=== PATIENT | male | born 1965 | race Caucasian/White ===

== ENCOUNTER 2020-08-28 12:52 | Emergency (ER) | payer OTHER ==
[~2020-08-28] VITALS: Ht 177.8 cm; Wt 77.1 kg
[2020-08-28] MEDS ORDERED: SODIUM CHLORIDE 0.9% 1,000 ML IV ONE ×2 (13:15)
[2020-08-28 13:40] LABS: Urine Bacteria NONE SEEN /hpf (None Seen); Urine Blood TRACE /uL (Negative); Urine Specific Gravity 1.027 (1.001-1.035); Urine WBC 4 /hpf (0 - 3)
[2020-08-28] MEDS ORDERED: ONDANSETRON HCL 4 MG/2 ML VIAL IV ONE ×2 (13:45→20:45)
[2020-08-28] MEDS ORDERED: MORPHINE SULFATE 4 MG/ML SYR/VIAL IV ONE ×2 (13:45→20:45)
[2020-08-28 13:46] LABS: Basophils # (auto) 0 10 ^3/uL (0-0.2); Basophils % (auto) 0.3 % (0.0-2.0); Eosinophils # (auto) 0 10 ^3/uL (0-0.8); Eosinophils % (auto) 0.4 % (0.0-7.0); Hematocrit 50.5 % (41.0-53.0); Hemoglobin 17.1 g/dL (13.5-17.5); Lymphocytes # (auto) 0.3 10 ^3/uL (0.4-5.4); Lymphocytes % (auto) 11.1 % (10.0-50.0); Mean Corpuscular Hemoglobin 33.2 pg (28.0-32.0); Mean Corpuscular Hgb Conc. 33.9 g/dL (32.0-36.0); Mean Corpuscular Volume 97.7 fL (80.0-100.0); Monocytes # (auto) 0 10 ^3/uL (0-1.3); Monocytes % (auto) 1.3 % (0.0-12.0); Neutrophils % (auto) 86.9 % (37.0-80.0); Nucleated Red Blood Cells % 0.5 %; Platelet Count (auto) 111 10^3/uL (140-450); Red Blood Cells 5.17 10^6/uL (4.5-5.90); Red Cell Distribution Width 13.3 % (11.8-14.3); White Blood Cell 2.3 10^3/uL (4.4-10.8)
[2020-08-28] MEDS ORDERED: ACETAMINOPHEN 500 MG TAB PO ONE ×2 (13:57→14:15)
[2020-08-28 14:19] LABS: Anion Gap 12 (5-15); Carbon Dioxide 17 mmol/L (21-32); Chloride 103 mmol/L (98-107); Potassium 5.5 mmol/L (3.5-5.1); Sodium 132 mmol/L (136-145)
[2020-08-28 14:22] LABS: Alanine Aminotransferase 25 U/L (16-61); Alkaline Phosphatase 94 U/L (45-117); Aspartate Aminotransferase 49 U/L (15-37); BUN/Creatinine Ratio 8.1; Blood Urea Nitrogen 11 mg/dL (7-18); Calcium 9.3 mg/dL (8.5-10.1); GFR African American 71 mL/min; GFR Non-African American 58 mL/min
[2020-08-28 14:23] LABS: Albumin 3.6 g/dL (3.4-5.0); Glucose 478 mg/dL (74-106); Lipase 124 U/L (73-393); Total Protein 7.5 g/dL (6.4-8.2)
[2020-08-28] MEDS ORDERED: SODIUM ZIRCONIUM CYCL 10 GM PAK PO ONE (14:45)
[2020-08-28] MEDS ORDERED: CALCIUM GLUC 1,000mg/50ml-NS 50 ML IV ONE (14:45)
[2020-08-28] MEDS ORDERED: ALBUTEROL SULF 2.5 MG/0.5ML(0.5%) NEB SOLN NEB ONE (14:45)
[2020-08-28] MEDS ORDERED: FUROSEMIDE 20 MG/2 ML VIAL IV ONE (14:45)
[2020-08-28] MEDS ORDERED: SODIUM BICARBONATE 8.4% INJ 50ML SYRINGE IV ONE (14:45)
[2020-08-28] MEDS ORDERED: InsuLIN REG 1unit/0.01ml Soln (100units/ml) IV ONE (14:45)
[2020-08-28 15:05] LABS: Amphetamine Screen, Urine NEGATIVE (NEGATIVE); Barbiturate Scree,Urine NEGATIVE (NEGATIVE); Benzodiazephine Screen, Urine NEGATIVE (NEGATIVE); Cannabinoid Screen, Urine NEGATIVE (NEGATIVE); Cocaine Screen, Urine NEGATIVE (NEGATIVE); Opiate Scree,Urine NEGATIVE (NEGATIVE); Phencyclidine Screen, Urine NEGATIVE (NEGATIVE)
[2020-08-28] MEDS ORDERED: cefTRIAXone 1GM/50ML D5W 50 ML IV ONE (16:45)
[2020-08-28 17:24] LABS: Lactic Acid w/Reflex 4.9 mmol/L (0.4-2.0)
[2020-08-28 20:00] VITALS: BP 106/65
== END 2020-08-28 20:51 | disposition left against medical advice (07) ==
LOC: EDSEX 12:52 → ER 12:52 → EDBD 12:52 → ER 20:51
DX: R10.84 Generalized abdominal pain (principal); E87.5 Hyperkalemia; R11.2 Nausea with vomiting, unspecified; F17.210 Nicotine dependence, cigarettes, uncomplicated; Z20.822 Contact with and (suspected) exposure to COVID-19
CPT/HCPCS: 36415; 71045; 74176; 80053; 80307; 81001; 82962; 83605; 83690; 84132; 84484; 85025; 87040; 87426; 93005; 94640; 96361; 96365; 96367; 96375; 99285; J0610; J0696; J1815; J1940; J2270; J2405

== ENCOUNTER 2024-03-31 07:45 | Emergency (ER) | payer OTHER ==
[~2024-03-31] VITALS: Ht 177.8 cm; Wt 105.0 kg
--- NOTE | 2024-03-31 07:57 | ED.PDOC ---
General HPI Comments 58 year old male RACHAEL presents to the ED with chief complaint of urine retention. Patient reports that he has been unable to urinate with associated symptoms of constipation, nausea, vomiting, weakness, and imbalance when walking for the past 3 days. Patient relays that he has stage 3 CKF, but does not need dialysis at this time. Patient has only been able to urinate a few mLs of urine according to EMS over the past 3 days. Patient denies any abdominal pain, dizziness, fever, chills, chest pain, SOB, or dysuria. Time Seen by MD: 07:53 Reviewed notes: Nurses Notes, Turkey Picker Notes, Medications, Allergies Allergies: Coded Allergies: NO KNOWN ALLERGIES (Unverified , 08/28/20) Information Source: Patient, Emergency Med Personnel Mode of Arrival: EMS Severity: Moderate Inability to void: Complete Timing: Days Duration: Since onset Has not urinated for: Hours Prehospital treatment: None Onset: Spontaneous Symptoms: Inability to void History of: None Location: None Penile discharge: None Modifying factors: None associated signs and symptoms: Nausea, Vomiting, Inability to Void Past Medical History PAST MEDICAL HISTORY: CKF (Stage 3), DM, High Lipids Surgical History (Other): Rt knee replacement Family History Family History: Reviewed,noncontributory to illness Social History Smoker: Cigarettes, Less Than 1 Pack/Day Alcohol: Occasionally Drugs: Denies Drug Use Lives In: Home Constitutional: reports: weakness; denies: chills, diaphoresis, fatigue, fever, malaise, sweats, others EENTM: denies: blurred vision, double vision, ear bleeding, ear discharge, ear drainage, ear pain, ear ringing, eye pain, eye redness, hearing loss, mouth pain, mouth swelling, nasal discharge, nose bleeding, nose congestion, nose pain, photophobia, tearing, throat pain, throat swelling, voice changes, others Respiratory: denies: cough, hemoptysis, orthopnea, SOB at rest, shortness of breath, SOB with excertion, stridor, wheezing, others Cardiovascular: denies: chest pain, dizzy spells, diaphoresis, Dyspnea on exertion, edema, irregular heart beat, left arm pain, lightheadedness, palpitations, PND, syncope, others Gastrointestinal: reports: constipated, nausea, vomiting; denies: abdomen distended, abdominal pain, blood streaked bowels, diarrhea, dysphagia, difficulty swallowing, hematemesis, melena, poor appetite, poor fluid intake, rectal bleeding, rectal pain, others Genitourinary: reports: others (Urine retention); denies: burning, dysuria, flank pain, frequency, hematuria, incontinence, penile discharge, penile sore, pain, testicle pain, testicle swelling, urgency Neurological: reports: others (Imbalance); denies: dizziness, fainting, headache, left sided numbness, left sided weakness, numbness, paresthesia, pre- existing deficit, right sided numbness, right sided weakness, seizure, speech problems, tingling, tremors, weakness Musculoskeletal: denies: back pain, gout, joint pain, joint swelling, muscle pain, muscle stiffness, neck pain, others Integumetry: denies: bruises, change in color, change in hair/nails, dryness, laceration, lesions, lumps, rash, wounds, others Allergic/Immunocompromised: denies: Difficulty Healing, Frequent Infections, Hives, Itching, others Hematologic/Lymphatic: denies: anemia, blood clots, easy bleeding, easy bruising, swollen glands, others Endocrine: denies: excessive hunger, excessive sweating, excessive thirst, excessive urination, flushing, intolerance to cold, intolerance to heat, unexplained weight gain, unexplained weight loss, others Psychiatric: denies: anxiety, bipolar disorder, depression, hopeless, panic disorder, schizophrenia, sleepless, suicidal, others All Other Systems: Reviewed and Negative Physical Exam General Appearance: Moderate Distress, Normal HEENT: Normal ENT Inspection, PERRL/EOMI Neck: Full Range of Motion, Non-Tender, Normal, Normal Inspection Respiratory: Chest Non-Tender, Lungs Clear, No Accessory Muscle Use, No Respiratory Distress, Normal Breath Sounds Cardiovascular: No Edema, No JVD, No Murmur, No Gallop, Normal Peripheral Pulses, Regular Rate/Rhythm Breast Exam: Deferred Gastrointestinal: Distended, No Organomegaly, No Pulsatile Mass, Normal Bowel Sounds, Soft Genitalia: Deferred Pelvic: Deferred Rectal: Deferred Extremities: No calf tenderness, Normal capillary refill, Normal inspection, Normal range of motion, Non-tender, No pedal edema Musculoskeletal : Apperance: Normal Neurologic: Alert, hotel or motel manager II-XII nml as Tested, No Motor Deficits, Normal Affect, Normal Mood, No Sensory Deficits Cerebellar Function: NOT DONE Reflexes: NOT DONE Skin: Dry, Normal Color, Warm Peripheral Pulses: 3+ Radial (R), 3+ Radial (L) Lymphatic: No Adenopathy Was a procedure done? Was a procedure done?: No Differential Diagnosis Kidney stone (Female): Musculoskeletal pain, Urinary obstruction, Urolithiasis X-Ray, Labs, Meds, VS Vital Signs Date Time Temp Pulse Resp B/P (MAP) Pulse Ox O2 Delivery O2 Flow Rate FiO2 03/31/24 14:56 90 18 98 Room Air 03/31/24 14:56 98.0 90 18 107/65 (79) 98 98.0 03/31/24 11:16 98.0 93 20 100/61 (74) 96 98.0 03/31/24 10:18 77 98/61 (73) 03/31/24 10:00 90 18 96/63 (74) 97 03/31/24 09:20 97.5 97 19 88/58 (68) 97 97.5 03/31/24 08:16 97.7 82 16 117/85 (96) 96 Lab Test 03/31/24 14:36 03/31/24 11:08 03/31/24 08:15 Range/Units Urine Color Dark yellow Yellow Urine Clarity Ex.turbid Clear Urine pH 6.5 5.0-9.0 Urine Specific [place] 1.021 1.001-1.035 Urine Protein 3+ H Negative Urine Ketones 1+ H Negative Urine Blood 3+ H Negative /uL Urine Nitrite 1+ H Negative Urine Bilirubin Negative Negative Urine Urobilinogen Normal Negative mg/dL Urine Leukocyte Esterase 3+ Negative /uL Urine RBC 193 0 - 3 /hpf Urine WBC 569 0 - 3 /hpf Urine WBC Clumps Present None Seen /hpf Urine Squamous Epithelial Cells Mod <5 /hpf Urine Bacteria None seen None Seen /hpf Urine Creatinine Pending Urine Protein/Creatinine Ratio Pending Urine Sodium Pending Urine Glucose Normal Normal mg/dL Urine Total Protein Pending Urine Opiates Screen Neg NEGATIVE Urine Fentanyl Screen Neg NEGATIVE Urine Barbiturates Screen Neg NEGATIVE Urine Phencyclidine Screen Neg NEGATIVE Urine Amphetamines Screen Neg NEGATIVE Urine Benzodiazepines Screen Neg NEGATIVE Urine Cocaine Screen Neg NEGATIVE Urine Cannabinoids Screen Neg NEGATIVE Lactic Acid Level 2.0 0.4-2.0 mmol/L White Blood Count 5.9 4.4-10.8 10^3/uL Red Blood Count 4.21 L 4.5-5.90 10^6/uL Hemoglobin 12.3 L 13.5-17.5 g/dL Hematocrit 37.6 L 41.0-53.0 % Mean Corpuscular Volume 89.3 80.0-100.0 fL Mean Corpuscular Hemoglobin 29.2 28.0-32.0 pg Mean Corpuscular Hemoglobin Concent 32.8 32.0-36.0 g/dL Red Cell Distribution Width 21.7 H 11.8-14.3 % Platelet Count 92 L 140-450 10^3/uL Mean Platelet Volume 8.7 6.9-10.8 fL Neutrophils (%) (Auto) 74.9 37.0-80.0 % Lymphocytes (%) (Auto) 10.7 10.0-50.0 % Monocytes (%) (Auto) 12.6 H 0.0-12.0 % Eosinophils (%) (Auto) 0.9 0.0-7.0 % Basophils (%) (Auto) 0.9 0.0-2.0 % Neutrophils # (Auto) 4.4 1.6-8.6 10 ^3/uL Lymphocytes # (Auto) 0.6 0.4-5.4 10 ^3/uL Monocytes # (Auto) 0.7 0-1.3 10 ^3/uL Eosinophils # (Auto) 0.1 0-0.8 10 ^3/uL Basophils # (Auto) 0.1 0-0.2 10 ^3/uL Nucleated Red Blood Cells 0.0 % Platelet Estimate Decreased Anisocytosis (manual) Slight Microcytosis Slight Tear Drop Cells Few Stomatocytes Few Sodium Level 130 L 136-145 mmol/L Potassium Level 3.0 L 3.5-5.1 mmol/L Chloride Level 88 L 98-107 mmol/L Carbon Dioxide Level 17 L 20-31 mmol/L Anion Gap 25 H 5-15 Blood Urea Nitrogen 57 H 9-23 mg/dL Creatinine 10.20 *H 0.700-1.30 mg/dL Glomerular Filtration Rate Calc 5 >90 mL/min BUN/Creatinine Ratio 5.6 L 10.0-20.0 Serum Glucose 140 H 74-106 mg/dL Uric Acid Pending Calcium Level 9.6 8.7-10.4 mg/dL Phosphorus Level 3.1 2.4-5.1 mg/dL Magnesium Level 2.4 1.6-2.6 mg/dL B-Type Natriuretic Peptide Pending Hepatitis B Surface Antigen Pending Hepatitis C Antibody Pending Current Medications Medications (Trade) Dose Ordered Sig/Beth Route Start Time Stop Time Status Last Admin Piperacillin Sod/ Tazobactam Sod 100 ml @ 100 mls/hr ONCE ONCE IV 03/31/24 09:00 03/31/24 09:59 DC 03/31/24 09:22 Potassium Bicarbonate (Klor-Con/Ef) 25 meq ONCE ONCE PO 03/31/24 09:15 03/31/24 09:16 DC 03/31/24 09:12 Sodium Chloride 1,000 ml @ 1,000 mls/hr Q1H ONCE IV 03/31/24 09:15 03/31/24 10:14 DC 03/31/24 09:22 Sodium Bicarbonate 50 ml/ Sodium Chloride 1,050 ml @ 120 mls/hr ONCE ONCE IV 03/31/24 14:30 03/31/24 23:14 03/31/24 15:31 Potassium Bicarbonate (Klor-Con/Ef) 25 meq ONCE ONCE PO 03/31/24 15:15 03/31/24 15:16 DC 03/31/24 15:17 Patient alert. Complaining of urinary hesitancy. Vitals stable. Answering all questions. History of chronic kidney disease. Potassium is low. BUN creatinine elevated. Anion gap is elevated. Lactic acidosis. Establish intravenous access. Was given fluids. Was given Zosyn. Crodova catheter. Reviewed his previous visit. Explained to the patient. Continue cardiac monitoring. [id number]. Time of 1ST Reevaluation: 08:53 Reevaluation 1ST: Unchanged Patient Education/Counseling: Diagnosis, Treatment Family Education/Counseling: No Family Present Additional Information The following tests were ordered, and results were reviewed by me: CT Abd/Pel, Lactic acid, BMP, CBC, UA, RBC Morphology Additional Information was gathered from interviewing the following independent historians EMT I reviewed and agreed with the following test results read by other providers: CT Abd/Pel I discussed treatment and results with medical personnel. Departure 1 Departure Time of Disposition: 09:05 Impression: Primary Impression: Acute abdominal pain Additional Impressions: Enteritis Hypokalemia Uncontrolled diabetes mellitus Qualified Codes: E13.65 - Other specified diabetes mellitus with hyperglycemia Disposition: ADMITTED INPATIENT Admit to: Med Surg Condition: Guarded Critical Care Note Critical Care Time?: Yes (45 min-critical care time only) Stability Stability form required: No Heart Score Heart Score: Heart Score Response (Comments) Value History N/A 0 EKG N/A 0 Age N/A 0 Risk Factors N/A 0 Troponin N/A 0 Total 0 I personally scribed for MARY KAY ALEMAN MD ([email or web address]) on 03/31/24 at 07:57. Electronically submitted by Kevin Steel ([email or web address]). I personally scribed for MARY KAY LAEMAN MD ([email or web address]) on 03/31/24 at 15:37. Electronically submitted by Kevin Steel ([email or web address]). MARY KAY ALEMAN MD Mar 31, 2024 07:57
[2024-03-31 08:33] LABS: Basophils # (auto) 0.1 10 ^3/uL (0-0.2); Basophils % (auto) 0.9 % (0.0-2.0); Eosinophils # (auto) 0.1 10 ^3/uL (0-0.8); Eosinophils % (auto) 0.9 % (0.0-7.0); Hematocrit 37.6 % (41.0-53.0); Hemoglobin 12.3 g/dL (13.5-17.5); Lymphocytes # (auto) 0.6 10 ^3/uL (0.4-5.4); Lymphocytes % (auto) 10.7 % (10.0-50.0); Mean Corpuscular Hemoglobin 29.2 pg (28.0-32.0); Mean Corpuscular Hgb Conc. 32.8 g/dL (32.0-36.0); Mean Corpuscular Volume 89.3 fL (80.0-100.0); Monocytes # (auto) 0.7 10 ^3/uL (0-1.3); Monocytes % (auto) 12.6 % (0.0-12.0); Neutrophils # (auto) 4.4 10 ^3/uL (1.6-8.6); Neutrophils % (auto) 74.9 % (37.0-80.0); Platelet Count (auto) 92 10^3/uL (140-450); Red Blood Cells 4.21 10^6/uL (4.5-5.90); White Blood Cell 5.9 10^3/uL (4.4-10.8)
--- NOTE | 2024-03-31 08:38 | DVH ---
Procedure: CT CT AB PEL WO CON-NO ORAL OR IV 03/31/2024 08:02 AM Indication: distended Comparison Study: CT scan dated 08/28/2020 Technique: Axial images were obtained and reformatted in coronal and sagittal planes. All CT scans at this medical facility are performed using dose modulation techniques as appropriate t o a performed exam including the following: Automated exposure control was utilized; adjustment of th e MA and/or KV according to patient size; and use of iterative reconstruction technique. CT Dose: CTDI volume is 24.7 mGy. Dose-length product is 1494.83 mGy*cm FINDINGS: Lower Chest: Unremarkable. Hepatobiliary: Hepatomegaly and hepatic steatosis. Spleen: Unremarkable. Pancreas: Unremarkable. Adrenal Glands: Unremarkable. tract: The kidneys are normal in size bilaterally without hydronephrosis . A 3 mm nonobstructing stone noted in the upper pole of the left kidney. The urinary bladder is unremarkable. GI tract: The stomach is grossly normal in appearance. No evidence of small bowel obstruction. Grossl y stable 0.8 cm submucosal lipoma in the horizontal part of duodenum. Mild circumferential mural thic kening of terminal ileum noted. Submucosal fat deposit in the ascending colon noted. The large bowel is unremarkable. The appendix is normal. Lymphatics: No mesenteric, retroperitoneal or periportal lymphadenopathy. Vasculature: The abdominal aorta is normal in caliber. Diffuse calcified plaque formation is noted. Pelvic Organs: Unremarkable Bones/soft tissues: No acute abnormality. Other: None. IMPRESSION: 1. Mild circumferential mural thickening of the terminal ileum that may represent inflammatory or inf ectious enteritis. No evidence of colitis. There is submucosal fat deposit in the ascending colon bc t could reflect sequela of chronic inflammatory bowel disease. 2. Hepatomegaly and hepatic steatosis. 3. Stable subcentimeter distal duodenal lipoma.
[2024-03-31 08:42] LABS: Anion Gap 25 (5-15); Calcium 9.6 mg/dL (8.7-10.4)
[2024-03-31 08:47] LABS: BUN/Creatinine Ratio 5.6 (10.0-20.0)
[2024-03-31 08:56] LABS: Blood Urea Nitrogen 57 mg/dL (9-23); Carbon Dioxide 17 mmol/L (20-31); Chloride 88 mmol/L (98-107); Glucose 140 mg/dL (74-106); Sodium 130 mmol/L (136-145)
[2024-03-31 09:07] LABS: Red Cell Distribution Width 21.7 % (11.8-14.3)
[2024-03-31] MEDS: POTASSIUM EFFERVESENT TAB 25 MEQ PO ONE ×2 (09:12→15:17)
[2024-03-31] MEDS: PIPERACILLIN-TAZOB 3.375GM 100 ML IV ONE (09:22)
[2024-03-31] MEDS: SODIUM CHLORIDE 0.9% 1,000 ML IV ONE (09:22)
[2024-03-31 10:31] LABS: Anisocytosis Slight; Tear Drop Cells FEW
[2024-03-31 10:32] LABS: Platelet Estimate Decreased; Stomatocytes Few
--- NOTE | 2024-03-31 14:13 | DVHINCON2 ---
Date of service: Mar 31, [address] Cronin Reason for Consultation Acute kidney injury History of Present Illness Patient is a 58-year-old male with past medical history significant for DM, High Lipids and Chronic Kidney Disease stage 3 who presented to the hospital unable to urinate for three days associated with nausea vomiting abdominal pain and weakness. On admission patient found to have elevated BUN creatinine nephrology is consulted for acute kidney injury Past Medical History PAST MEDICAL HISTORY: CKF (Stage 3), DM, High Lipids Past Surgical History Surgical History (Other): Rt knee replacement Allergies: Coded Allergies: NO KNOWN ALLERGIES (Unverified , 08/28/20) Current Medications Current Medications Medications (Trade) Dose Ordered Sig/Beth Route PRN Reason Start Time Stop Time Status Last Admin Potassium Chloride 100 ml @ 50 mls/hr Q2H IV 03/31/24 14:30 03/31/24 15:16 DC Review of Systems All 12 item review of systems reviewed with the patient nonsignificant except what is mentioned in the history of present illness H&P Exam Vital Signs/I&O Vital Sign Date Time Temp Pulse Resp B/P (MAP) Pulse Ox O2 Delivery O2 Flow Rate FiO2 03/31/24 14:56 90 18 98 Room Air 03/31/24 14:56 98.0 107/65 (79) 98.0 Physical Exam Patient is awake alert appeared in moderate distress due to urinary retention Lungs clear to auscultation bilaterally Cardiac exam regular rate and rhythm GI soft nontender suprapubic tenderness and distention Extremity no clubbing cyanosis or edema Neuro nonfocal Labs/Diagnostic Data Labs/Diagnostic Data Laboratory Tests Test 03/31/24 14:36 03/31/24 11:08 03/31/24 08:15 Range/Units Urine Color Dark yellow Yellow Urine Clarity Ex.turbid Clear Urine pH 6.5 5.0-9.0 Urine Specific [place] 1.021 1.001-1.035 Urine Protein 3+ H Negative Urine Ketones 1+ H Negative Urine Blood 3+ H Negative /uL Urine Nitrite 1+ H Negative Urine Bilirubin Negative Negative Urine Urobilinogen Normal Negative mg/dL Urine Leukocyte Esterase 3+ Negative /uL Urine RBC 193 0 - 3 /hpf Urine WBC 569 0 - 3 /hpf Urine WBC Clumps Present None Seen /hpf Urine Squamous Epithelial Cells Mod <5 /hpf Urine Bacteria None seen None Seen /hpf Urine Creatinine 106.40 30.0-125.0 mg/dL Urine Protein/Creatinine Ratio 11.70 Urine Sodium 82 40-220 mmol/L Urine Glucose Normal Normal mg/dL Urine Total Protein 1245.0 H 1-14 mg/dL Urine Opiates Screen Neg NEGATIVE Urine Fentanyl Screen Neg NEGATIVE Urine Barbiturates Screen Neg NEGATIVE Urine Phencyclidine Screen Neg NEGATIVE Urine Amphetamines Screen Neg NEGATIVE Urine Benzodiazepines Screen Neg NEGATIVE Urine Cocaine Screen Neg NEGATIVE Urine Cannabinoids Screen Neg NEGATIVE Lactic Acid Level 2.0 0.4-2.0 mmol/L White Blood Count 5.9 4.4-10.8 10^3/uL Red Blood Count 4.21 L 4.5-5.90 10^6/uL Hemoglobin 12.3 L 13.5-17.5 g/dL Hematocrit 37.6 L 41.0-53.0 % Mean Corpuscular Volume 89.3 80.0-100.0 fL Mean Corpuscular Hemoglobin 29.2 28.0-32.0 pg Mean Corpuscular Hemoglobin Concent 32.8 32.0-36.0 g/dL Red Cell Distribution Width 21.7 H 11.8-14.3 % Platelet Count 92 L 140-450 10^3/uL Mean Platelet Volume 8.7 6.9-10.8 fL Neutrophils (%) (Auto) 74.9 37.0-80.0 % Lymphocytes (%) (Auto) 10.7 10.0-50.0 % Monocytes (%) (Auto) 12.6 H 0.0-12.0 % Eosinophils (%) (Auto) 0.9 0.0-7.0 % Basophils (%) (Auto) 0.9 0.0-2.0 % Neutrophils # (Auto) 4.4 1.6-8.6 10 ^3/uL Lymphocytes # (Auto) 0.6 0.4-5.4 10 ^3/uL Monocytes # (Auto) 0.7 0-1.3 10 ^3/uL Eosinophils # (Auto) 0.1 0-0.8 10 ^3/uL Basophils # (Auto) 0.1 0-0.2 10 ^3/uL Nucleated Red Blood Cells 0.0 % Platelet Estimate Decreased Anisocytosis (manual) Slight Microcytosis Slight Tear Drop Cells Few Stomatocytes Few Sodium Level 130 L 136-145 mmol/L Potassium Level 3.0 L 3.5-5.1 mmol/L Chloride Level 88 L 98-107 mmol/L Carbon Dioxide Level 17 L 20-31 mmol/L Anion Gap 25 H 5-15 Blood Urea Nitrogen 57 H 9-23 mg/dL Creatinine 10.20 *H 0.700-1.30 mg/dL Glomerular Filtration Rate Calc 5 >90 mL/min BUN/Creatinine Ratio 5.6 L 10.0-20.0 Serum Glucose 140 H 74-106 mg/dL Uric Acid 11.7 H 3.7-9.2 mg/dL Calcium Level 9.6 8.7-10.4 mg/dL Phosphorus Level 3.1 2.4-5.1 mg/dL Magnesium Level 2.4 1.6-2.6 mg/dL B-Type Natriuretic Peptide 48.27 0-100 pg/mL Assessment Acute kidney injury superimposed Chronic Kidney Disease secondary hemodynamic mediated Acute urinary retention BPH with lower urinary retention Diabetes mellitus type 2 Hypokalemia Metabolic acidosis Recommendations Closely monitor fluid and electrolytes Avoid nephrotoxic medications Cordova catheter Strict I&Os IVF 1/2 NS with 50 mEq sodium bicarb at 120 cc/hour Check urinalysis urine electrolytes and urine protein excretion and urine culture and sensitivity Check kidney ultrasound KCL replacement Insulin sliding scale We will continue to follow Patient seen and examined by myself in the ER. I discussed my plan of care with the patient and primary nurse at the bedside I would like to thank for the consult, will follow up Plan discussed with: Patient TRISH COATES MD Mar 31, 2024 14:13
[2024-03-31 14:38] LABS: Urine Bacteria None Seen /hpf (None Seen)
[2024-03-31 14:40] LABS: Urine Blood 3+ /uL (Negative); Urine Clarity Ex.Turbid (Clear); Urine Protein, UAD 3+ (Negative); Urine Specific Gravity 1.021 (1.001-1.035); Urine Urobilinogen Normal (Negative); Urine WBC 569 /hpf (0 - 3); Urine WBC Clumps PRESENT /hpf (None Seen); Urine pH 6.5 (5.0-9.0)
[2024-03-31 14:42] LABS: Urine Color DARK YELLOW (Yellow)
[2024-03-31 14:58] LABS: Amphetamine Screen, Urine Neg (NEGATIVE)
[2024-03-31 15:02] LABS: Barbiturate Scree,Urine Neg (NEGATIVE); Benzodiazephine Screen, Urine Neg (NEGATIVE); Cannabinoid Screen, Urine Neg (NEGATIVE); Cocaine Screen, Urine Neg (NEGATIVE); Opiate Scree,Urine Neg (NEGATIVE); Phencyclidine Screen, Urine Neg (NEGATIVE)
[2024-03-31] MEDS: POTASSIUM CHL 20MEQ/100ML 100 ML IV SCH (15:09)
[2024-03-31 15:28] LABS: Magnesium 2.4 mg/dL (1.6-2.6)
[2024-03-31 15:29] LABS: Phosphorus 3.1 mg/dL (2.4-5.1)
[2024-03-31] MEDS: SODIUM BICARB 50mEq/50ml Vial 50 ML in SOD CHL 0.45% 1,000 ML IV ONE (15:31)
[2024-03-31 15:41] LABS: Creatinine, Urine 106.4 mg/dL (30.0-125.0)
[2024-03-31 15:43] LABS: Urine Protein/Creatinine Ratio 11.7
[2024-03-31 17:58] VITALS: BP 95/59; PULSE 89; RESP 19; TEMP 97.6; O2SAT 95
[2024-04-04 08:44] LABS: Hepatitis B Surface Antigen Negative (Negative)
[2024-04-04 09:11] LABS: Hepatitis C Antibody Negative (Negative)
== END 2024-03-31 18:00 | disposition short-term general hospital (02) ==
LOC: EDBD 07:45 → ER 07:45
DX: K52.9 Noninfective gastroenteritis and colitis, unspecified (principal); E87.6 Hypokalemia; E11.9 Type 2 diabetes mellitus without complications; R10.9 Unspecified abdominal pain; E78.5 Hyperlipidemia, unspecified; F12.90 Cannabis use, unspecified, uncomplicated; Z98.890 Other specified postprocedural states; Z79.899 Other long term (current) drug therapy
CPT/HCPCS: 36415; 51702; 74176; 80048; 80307; 81001; 82570; 83605; 83735; 83880; 84100; 84156; 84300; 84550; 85025; 86803; 87340; 96365; 96366; 96367; 99285; J2543